=== PATIENT | female | born 1975 | race African-American/Black ===

== ENCOUNTER 2016-10-04 11:40 | Emergency (ER) | payer MEDICARE ==
[~2016-10-04 11:40] MED LIST: ALBUTEROL17 GM INH; ALDOMET250 MG PO; BENICAR PO; FLEXERIL10 MG PO; IBUPROFEN PO; IBUPROFEN800 MG PO; NORVASC PO; PHENERGAN W/CO120 ML PO; POLYSACC IRON150 MG PO; PRENATAL VITAMI1 TA3 PO; SKELAXIN PO; ZITHROMAX PO; [UNRECOGNIZED DRUG - OTHER] PO
== END 2016-10-04 12:01 | disposition home or self-care (01) ==
LOC: CFTX 11:40
DX: M54.2 Cervicalgia (principal); G89.29 Other chronic pain; I10 Essential (primary) hypertension; Z79.899 Other long term (current) drug therapy
CPT/HCPCS: 99283